=== PATIENT | male | born 1955 | race Native Hawaiian/Other Pacific Islander ===

== ENCOUNTER 2018-04-25 14:28 | Inpatient (IN) | payer OTHER ==
[2018-04-25 14:59] VITALS: BMI 24.7
--- NOTE | 2018-04-25 15:19 | C.PDOC ---
History Of Present Illness 63 y/o male presents to the ED for worsening MANDEL over the past month. States that he routinely walks long distances without difficulty. Reports being progressively less able to walk, and is now unable to walk 1 block to the bus without feeling winded. He states this improves with rest, but occasionally he will have dyspnea at rest. When lying flat, patient feels as if he is choking, and this improves when he sits up. Otherwise he denies any fever, chills, cough, or chest pain. Patient also complains of new-onset bilateral leg swelling, worsening for 1 month. No trauma or fall associated. No prior hx of lung disease or smoking. + Recent weight loss of 20lbs in 2 months. Time Seen by Provider: 04/25/18 14:41 Chief Complaint (Nursing): Lower Extremity Problem/Injury History Per: Patient History/Exam Limitations: no limitations Onset/Duration Of Symptoms: Days Current Symptoms Are (Timing): Worse Exacerbating Factor(s): Exertion, Laying Flat Associated Symptoms: Ankle/Leg Swelling. denies: Fever, Chills, Chest Pain Past Medical History Reviewed: Historical Data, Nursing Documentation, Vital Signs Vital Signs: Last Vital Signs Temp 97 F L 04/25/18 14:53 Pulse 98 H 04/25/18 14:53 Resp 22 04/25/18 14:53 BP 169/85 H 04/25/18 14:53 Pulse Ox 98 04/25/18 14:53 - Medical History PMH: HTN Other Surgeries: Lipoma removal Family History: States: No Known Family Hx - Social History Hx Tobacco Use: No Hx Alcohol Use: No Hx Substance Use: No - Immunization History Hx Tetanus Toxoid Vaccination: No Hx Influenza Vaccination: Yes Hx Pneumococcal Vaccination: No Review Of Systems Constitutional: Negative for: Fever, Chills Eyes: Negative for: Vision Change Cardiovascular: Negative for: Chest Pain, Palpitations Respiratory: Positive for: Shortness of Breath, SOB with Excertion. Negative for: Cough, Sputum Gastrointestinal: Negative for: Nausea, Vomiting, Diarrhea Musculoskeletal: Positive for: Other (Lower leg swelling) Skin: Negative for: Rash Neurological: Negative for: Weakness, Numbness, Dizziness Physical Exam - Physical Exam Appears: Non-toxic, No Acute Distress Skin: Normal Color, Warm, No Rash Head: Atraumatic, Normacephalic Eye(s): bilateral: Normal Inspection, PERRL, EOMI Oral Mucosa: Moist Neck: Normal ROM Chest: Symmetrical, No Tenderness Cardiovascular: Rhythm Regular, No Murmur Respiratory: Normal Breath Sounds, No Rales, No Rhonchi, No Wheezing, Other (NARD) Gastrointestinal/Abdominal: Soft, No Tenderness, No Distention Back: Normal Inspection Extremity: Normal ROM, Capillary Refill (< 2 sec), No Deformity, Swelling (Bilateral lower extremity swelling, non-pitting) Pulses: Left Dorsalis Pedis: Normal, Right Dorsalis Pedis: Normal Neurological/Psych: Oriented x3, Normal Speech, Normal Cranial Nerves ED Course And Treatment - Laboratory Results Result Diagrams: 04/25/18 15:19 04/25/18 15:19 ECG: Interpreted By Me, Viewed By Me ECG Rhythm: Sinus Rhythm Interpretation Of ECG: NSR at 80 bpm, nonspecific T wave abnormality O2 Sat by Pulse Oximetry: 98 (RA) Pulse Ox Interpretation: Normal - Radiology CXR: Interpreted by Me CXR Interpretation: Yes: No Acute Disease - CT Scan/US CT Chest [PE protocol] Other Rad Studies (CT/US): Read By Radiologist, Radiology Report Reviewed CT/US Interpretation: Accession No. : [id number]. Patient Name / ID : NELI ACOSTA / [id number]. Exam Date : 04/25/2018 16:20:06 ( Approved ). Study Comment : Sex / Age : M / [id number]. Creator : Sandra Barboza. Dictator : Kingston Tomas MD. Milk House Worker : Signals Intelligence Analyst : Kingston Tomas MD. Approver2 : Report Date : 04/25/2018 16:32:49. My Comment : . Date of service: 04/25/2018. PROCEDURE: CT Chest with contrast (Pulmonary Angiogram). HISTORY: SOB r/o PE. COMPARISON: Not available. TECHNIQUE: Axial computed tomography images were obtained of the chest in the pulmonary arterial phase of enhancement. Coronal and sagittal reformatted images were created and reviewed. Intravenous contrast dose: 100 mL Visipaque 320. Radiation dose: Total exam DLP = 567.66 mGy-cm. This CT exam was performed using one or more of the following dose reduction techniques: Automated exposure control, adjustment of the mA and/or kV according to patient size, and/or use of iterative reconstruction technique. FINDINGS: PULMONARY ARTERIES: Unremarkable. No pulmonary embolism. AORTA: No acute findings. No thoracic aortic aneurysm. No aortic atherosclerotic calcification or mural plaque present. LUNGS: Unremarkable. No nodule, mass or pulmonary consolidation. PLEURAL SPACES: Unremarkable. No effusion or pneumothorax. HEART: Unremarkable. No cardiomegaly. No significant pericardial effusion. LYMPH NODES: No lymphadenopathy. BONES, CHEST WALL: Unremarkable. No fracture or destructive lesion. OTHER FINDINGS: Large calcified gallstone within gallbladder lumen. No mural thickening. Multiple rounded low-attenuation lesions throughout the liver common nonspecific. Largest 3.8 cm. Consider correlation with hepatic ultrasound examination. IMPRESSION: No evidence of pulmonary embolism. No pulmonary infiltrate/pleural effusion. Multiple rounded low-attenuation nonspecific lesions within the liver. Consider correlation with ultrasound examination. Doppler US - B/L LE Other Rad Studies (CT/US): Read By Radiologist, Radiology Report Reviewed CT/US Interpretation: + abnormality in the: Left deep perneal vein. Right short saphenous vein Progress - Re-Evaluation Re-evaluation Note: 04/25/18 15:19 D/W DR WREN AWARE OF ER FINDINGS. CTA PENDING, WILL ADMIT - Data Reviewed Data Reviewed: Lab, Diagnostic imaging, EKG, Old records Medical Decision Making Medical Decision Making: Impression: MANDEL, B/L lower leg swelling Plan: -CMP, CBC, pro-BNP -VBG -EKG -Chest x-ray -Doppler US, B/L LE Vascular study shows + B/L DVT. CTA ordered to rule out PE. Disposition Counseled Patient/Family Regarding: Studies Performed, Diagnosis - Disposition Disposition: HOSPITALIZED Disposition Time: 16:16 Condition: SERIOUS - POA Present On Arrival: Deep Vein Thrombosis / PE - Clinical Impression Clinical Impression: Deep venous thrombosis of lower extremity, Lymphocytosis, Dyspnea - Scribe Statement The provider has reviewed the documentation as recorded by the Amparo Escobar Provider Attestation: All medical record entries made by the Scribe were at my direction and personal ly dictated by me. I have reviewed the chart and agree that the record accurately reflects my personal performance of the history, physical exam, medical decision making, and the department course for this patient. I have also personally directed, reviewed, and agree with the discharge instructions and disposition.
[2018-04-25 15:34] LABS: EOS # 0.7 K/uL (0.0-0.7); EOS % 0.4 % (0.0-4.0); HEMOGLOBIN 13.1 g/dL (12.0-18.0); LYMPH # 0.7 K/uL (1.0-4.3); LYMPH % 0.4 % (20.0-40.0); MEAN CELL VOLUME 87.8 fL (80.0-94.0); MEAN CORPUSCULAR HEMOGLOBIN 28.6 pg (27.0-31.0); MEAN CORPUSCULAR HGB CONC 32.6 g/dL (33.0-37.0); MEAN PLATELET VOLUME 7.3 fL (7.2-11.7); MONO # 148.9 K/uL (0.0-0.8); MONO % 88.1 % (0.0-10.0); NEUT # 18.7 K/uL (1.8-7.0); NEUT % 11.1 % (50.0-75.0); NRBC % 0.1 % (0.0-2.0); PLATELET COUNT 173 K/uL (130-400); RBC 4.58 Mil/uL (4.40-5.90); RED CELL DISTRIBUTION WIDTH 18.1 % (11.5-14.5)
[2018-04-25 15:38] LABS: VENOUS BLOOD GAS BASE EXCESS -1.7 mmol/L (0.0-2.0); VENOUS BLOOD GAS PCO2 59 mmHg (40-60); VENOUS BLOOD GAS PO2 13 mm/Hg (30-55); VENOUS BLOOD PH 7.26 (7.32-7.43)
[2018-04-25 15:39] LABS: BLOOD UREA NITROGEN 21 mg/dL (9-20); CALCIUM 9.3 mg/dl (8.6-10.4); GFR NON-AFRICAN AMERICAN 56
[2018-04-25 15:44] LABS: ALB/GLOB RATIO 1.4 (1.0-2.1); ALBUMIN 4.8 g/dL (3.5-5.0); ALT/SGPT 31 U/L (21-72); AST/SGOT 54 U/L (17-59)
[2018-04-25 15:48] LABS: B-TYPE NATRIURETIC PEPTIDE 145 pg/mL (0-900)
[2018-04-25] MEDS ORDERED: Enoxaparin 40 mg Syringe SC STA (16:15)
[2018-04-25] MEDS ORDERED: Iodixanol 320 MG/ML 100 ML BOTTLE IV ONE (16:19)
--- NOTE | 2018-04-25 16:23 | RAD ---
Date of service: 04/25/2018 HISTORY: SOB COMPARISON: No prior. TECHNIQUE: Chest PA and lateral FINDINGS: LUNGS: No active pulmonary disease. PLEURA: No significant pleural effusion identified. No pneumothorax apparent. CARDIOVASCULAR: No aortic atherosclerotic calcification present. Normal cardiac size. No pulmonary vascular congestion. OSSEOUS STRUCTURES: No significant abnormalities. VISUALIZED UPPER ABDOMEN: Normal. OTHER FINDINGS: None. IMPRESSION: No active disease.
[2018-04-25] MEDS ORDERED: Enoxaparin 40 mg Syringe ONE ×2 (16:43→16:49)
[2018-04-25] MEDS ORDERED: Enoxaparin 100 mg Syringe ONE (16:43)
--- NOTE | 2018-04-25 16:43 | CT ---
Date of service: 04/25/2018 PROCEDURE: CT Chest with contrast (Pulmonary Angiogram) HISTORY: SOB r/o PE COMPARISON: Not available TECHNIQUE: Axial computed tomography images were obtained of the chest in the pulmonary arterial phase of enhancement. Coronal and sagittal reformatted images were created and reviewed. Intravenous contrast dose: 100 mL Visipaque 320 Radiation dose: Total exam DLP = 567.66 mGy-cm. This CT exam was performed using one or more of the following dose reduction techniques: Automated exposure control, adjustment of the mA and/or kV according to patient size, and/or use of iterative reconstruction technique. FINDINGS: PULMONARY ARTERIES: Unremarkable. No pulmonary embolism. AORTA: No acute findings. No thoracic aortic aneurysm. No aortic atherosclerotic calcification or mural plaque present. LUNGS: Unremarkable. No nodule, mass or pulmonary consolidation. PLEURAL SPACES: Unremarkable. No effusion or pneumothorax. HEART: Unremarkable. No cardiomegaly. No significant pericardial effusion. LYMPH NODES: No lymphadenopathy. BONES, CHEST WALL: Unremarkable. No fracture or destructive lesion OTHER FINDINGS: Large calcified gallstone within gallbladder lumen. No mural thickening. Multiple rounded low-attenuation lesions throughout the liver common nonspecific. Largest 3.8 cm. Consider correlation with hepatic ultrasound examination. IMPRESSION: No evidence of pulmonary embolism. No pulmonary infiltrate/pleural effusion. Multiple rounded low-attenuation nonspecific lesions within the liver. Consider correlation with ultrasound examination.
[2018-04-25 17:09] LABS: ANISOCYTOSIS SLIGHT; BANDS 6 % (0-2); BLASTS 25 % (0-0); EOSINOPHIL 1 % (0-4); LYMPHOCYTE 30 % (20-40); MONOCYTE 3 % (0-10); NEUTROPHIL 11 % (50-75); PLATELET ESTIMATE NORMAL (NORMAL); REACTIVE LYMPHOCYTES 24 % (0-0); SMUDGE CELLS PRESENT; TOTAL CELLS COUNTED 100
--- NOTE | 2018-04-25 19:47 | CP.PCM.PN ---
Subjective - Date & Time of Evaluation Date of Evaluation: 04/25/18 Time of Evaluation: 03:00 - Subjective Subjective: 63 y.o. male with PMH Hypertensionadmitted due to persistent edema and swelling of the legs. and affecting ambulation, This wa snoted about 2-3 weeks ago when he noticed swelling of the left upper thigh, that disappear then swelling and edema of the left calf, then edema and swelling of the right leg. patient denies chest pain, abdominal pain, fever , DVT was negative. Patient came back due to persistent swelling and edema and pain of both legs, affecting ambulation, /gait - that he delays getting to bathroom due to pain. he reporst some what shortness of breath but still no chest pain no fever , no vomiting no urinary complaints. there is noted weight loss. In ER, Ct chest revealed negative for PE- but has mass on liver and very high WBC-160's. patient was admitted sugbsequently for further evaluation and management . PMH hypertension Cholelithiasis asymptomatic Objective - Vital Signs/Intake and Output Vital Signs (last 24 hours): Temp Pulse Resp BP Pulse Ox 98.8 F 76 14 142/72 100 04/25/18 18:23 04/25/18 18:23 04/25/18 18:23 04/25/18 18:23 04/25/18 18:23 - Labs Labs: 04/25/18 15:19 04/25/18 15:19 - Constitutional Appears: Non-toxic, No Acute Distress (reports leg pain affecting ambulation) - Head Exam Head Exam: ATRAUMATIC, NORMOCEPHALIC - Eye Exam Eye Exam: Normal appearance. absent: Nystagmus - ENT Exam ENT Exam: Mucous Membranes Moist - Neck Exam Neck Exam: Full ROM. absent: Tenderness - Respiratory Exam Respiratory Exam: Clear to Ausculation Bilateral, NORMAL BREATHING PATTERN - Cardiovascular Exam Cardiovascular Exam: REGULAR RHYTHM - GI/Abdominal Exam GI & Abdominal Exam: Soft, Normal Bowel Sounds. absent: Tenderness - Extremities Exam Extremities Exam: Full ROM ( with swelling and edema both legs, with tenderness ) - Back Exam Back Exam: Full ROM. absent: rash noted - Neurological Exam Neurological Exam: Alert, Awake, Oriented x3 (gait- became slow ,due to leg pain ) - Psychiatric Exam Psychiatric exam: Normal Affect, Normal Mood - Skin Skin Exam: Intact, Normal Color Assessment and Plan - Assessment and Plan (Free Text) Assessment: Patient with Hypertension admitted for DVT- Lovenox, affecting ambulation, weakness Chest CT negative for PE Leukocytosis weakness- need further evaluation- heme consult, Liver mass on Chest CT - Ct abdomen further evaluation will discuss with patient
[2018-04-25 20:00] VITALS: RESP 20
[2018-04-25 21:46] LABS: MEAN CORPUSCULAR HEMOGLOBIN 27.9 pg (27.0-31.0); MEAN CORPUSCULAR HGB CONC 32.5 g/dL (33.0-37.0); MEAN PLATELET VOLUME 7.5 fL (7.2-11.7); RBC 4.3 Mil/uL (4.40-5.90); RED CELL DISTRIBUTION WIDTH 17.7 % (11.5-14.5)
[2018-04-25 21:49] LABS: MEAN CELL VOLUME 85.7 fL (80.0-94.0); WHITE BLOOD COUNT 138.3 K/uL (4.8-10.8)
[2018-04-25 22:02] LABS: ALB/GLOB RATIO 1.4 (1.0-2.1); ALBUMIN 4.1 g/dL (3.5-5.0); CALCIUM 9.2 mg/dl (8.6-10.4)
[2018-04-26 07:14] LABS: BASO # 1.3 K/uL (0.0-0.2); EOS # 0.9 K/uL (0.0-0.7); EOS % 0.7 % (0.0-4.0); HEMOGLOBIN 12.3 g/dL (12.0-18.0); LYMPH # 121.8 K/uL (1.0-4.3); LYMPH % 92.1 % (20.0-40.0); MEAN CORPUSCULAR HEMOGLOBIN 27.9 pg (27.0-31.0); MEAN CORPUSCULAR HGB CONC 32.1 g/dL (33.0-37.0); MEAN PLATELET VOLUME 7.7 fL (7.2-11.7); NEUT # 8.2 K/uL (1.8-7.0); NEUT % 6.2 % (50.0-75.0); NRBC % 0.4 % (0.0-2.0); PLATELET COUNT 161 K/uL (130-400); RBC 4.41 Mil/uL (4.40-5.90); RED CELL DISTRIBUTION WIDTH 18.2 % (11.5-14.5)
[2018-04-26 07:21] LABS: WHITE BLOOD COUNT 132.2 K/uL (4.8-10.8)
--- NOTE | 2018-04-26 07:56 | CP.PCM.PN ---
Subjective - Date & Time of Evaluation Date of Evaluation: 04/26/18 Time of Evaluation: 08:15 - Subjective Subjective: chart review patient had requested repeat CBC -still with lymphocytosis Vitals stable no unusual event overnight afebrile on lovenox patient seenlegs still hurting ,\ with sligh improvement of swelling- walking slightly better laboratory finging discussedOncologist on case repeated /further discussion no fever no cough no chemical exposure weight loss noted Objective - Vital Signs/Intake and Output Vital Signs (last 24 hours): Temp Pulse Resp BP Pulse Ox 98.2 F 76 20 135/68 96 04/26/18 07:44 04/26/18 07:44 04/26/18 07:44 04/26/18 07:44 04/26/18 07:44 - Medications Medications: Current Medications Enoxaparin Sodium (Lovenox) 120 mg SC Q24H [facility] Hydrochlorothiazide (Microzide) 12.5 mg PO DAILY [facility] Losartan Potassium (Cozaar) 100 mg PO DAILY [facility] Pantoprazole Sodium (Protonix Ec Tab) 40 mg PO DAILY [facility] - Labs Labs: 04/26/18 07:04 04/25/18 21:17 - Constitutional Appears: Non-toxic, No Acute Distress - Head Exam Head Exam: ATRAUMATIC, NORMOCEPHALIC - Eye Exam Eye Exam: Normal appearance - ENT Exam ENT Exam: Mucous Membranes Moist - Neck Exam Neck Exam: Full ROM. absent: Tenderness - Respiratory Exam Respiratory Exam: Clear to Ausculation Bilateral, NORMAL BREATHING PATTERN - Cardiovascular Exam Cardiovascular Exam: REGULAR RHYTHM - GI/Abdominal Exam GI & Abdominal Exam: Soft, Normal Bowel Sounds - Extremities Exam Extremities Exam: Full ROM (swelling some edema lower legs, ) Assessment and Plan - Assessment and Plan (Free Text) Assessment: Patient withhistory of Hypertension admitted for DVT on treatment Gait slightly improving Lymphocytosis- Oncology on case -further verification, treatment as per Oncology discussed with patient and Hypertension- stable continue CRI with slight low potassium- will supplement with food/bananas Liver mass- further evaluation GI prophylaxis
[2018-04-26] MEDS ORDERED: Sodium Chloride 0.9% 1,000 ML IV SCH ×2 (09:15→15:43)
[2018-04-26] MEDS ORDERED: Pantoprazole 40 mg EC Tab PO SCH (10:00)
[2018-04-26 10:36] LABS: BANDS 3 % (0-2); BLASTS 19 % (0-0); EOSINOPHIL 1 % (0-4); LYMPHOCYTE 36 % (20-40); MONOCYTE 3 % (0-10); NEUTROPHIL 12 % (50-75); PLATELET ESTIMATE NORMAL (NORMAL); REACTIVE LYMPHOCYTES 26 % (0-0); TOTAL CELLS COUNTED 100
[2018-04-26 10:37] LABS: ANISOCYTOSIS SLIGHT; LARGE PLATELETS PRESENT; SMUDGE CELLS PRESENT
--- NOTE | 2018-04-26 15:09 | CT ---
Date of service: 04/26/2018 PROCEDURE: CT Abdomen and Pelvis with contrast HISTORY: abnormal mass low gfr 44 COMPARISON: Chest CT with contrast 04/25/2018. TECHNIQUE: Helical CT of the abdomen was performed from the domes the diaphragm to the iliac crest without oral or intravenous contrast administered, as requested. Contrast dose: None Radiation dose: Total exam DLP = 447.33 mGy-cm. This CT exam was performed using one or more of the following dose reduction techniques: Automated exposure control, adjustment of the mA and/or kV according to patient size, and/or use of iterative reconstruction technique. FINDINGS: LOWER THORAX: Unremarkable. LIVER: There multiple scattered lucencies appreciated throughout the liver the majority of which are too small to characterize as they are under 1 cm size. A lucency at the dome measures 3.8 x 3.2 cm with a Hounsfield unit density of -3.1. Additional cyst is seen at the left lobe laterally measuring 2.3 x 2.2 cm and 2.5 Hounsfield units. These likely reflects cysts not significantly changed in appearance in the interval. Numerous additional lucencies are scattered throughout the left and right lobes liver and are well under 1 cm size. The largest foci can be adequately evaluated by ultrasonography of the liver, which could prove there is simple appearing nature. GALLBLADDER AND BILE DUCTS: A large calculus is identified within a contracted gallbladder. PANCREAS: Unremarkable. No gross lesion or ductal dilatation. SPLEEN: Unremarkable. ADRENALS: Unremarkable. No mass. KIDNEYS AND URETERS: Trace excreted iodinated contrast material is seen within renal parenchyma bilaterally with the kidneys otherwise unremarkable appearing. VASCULATURE: Unremarkable. No aortic aneurysm. No aortic atherosclerotic calcification or mural plaque present. BOWEL: Unremarkable. No obstruction. No gross mural thickening. PERITONEUM: Unremarkable. No free fluid. No free air. LYMPH NODES: Unremarkable. No enlarged lymph nodes. BONES: No acute fracture. OTHER FINDINGS: None. IMPRESSION: Multiple lucencies are scattered throughout the liver with the 2 largest suggestive of cysts. Ultrasonography can prove there is simple nature. Cholelithiasis reiterated.
--- NOTE | 2018-04-26 15:36 | US ---
Date of service: 04/26/2018 HISTORY: lesions COMPARISON: CT of the abdomen performed TECHNIQUE: Sonographic evaluation of the right upper quadrant of the abdomen. FINDINGS: LIVER: Measures 13.1 cm in length. Echogenic liver may be seen in setting of hepatic parenchymal disease or fatty infiltration. Multiple avascular anechoic hepatic masses consistent with cysts. Largest cyst measures approximately 2.7 x 1.6 x 2.2 cm. The main portal vein appears patent with normal directional flow. No intrahepatic bile duct dilatation. GALLBLADDER: Cholelithiasis. Gallbladder wall thickening measuring approximately 5 mm. Negative sonographic Robin's sign as assessed by the residential therapist. COMMON BILE DUCT: Measures 4 mm. PANCREAS: Not well-visualized. RIGHT KIDNEY: Measures approximately 11.0 x 6.5 x 6.1 cm. No hydronephrosis or obstructing calculus identified. AORTA: Limited visualization appears grossly unremarkable. IVC: Not well-visualized. OTHER FINDINGS: None . IMPRESSION: Multiple hepatic cysts. Largest cyst measures approximately 2.7 x 1.6 x 2.2 cm. Echogenic liver may be seen in setting of hepatic parenchymal disease or fatty infiltration. Cholelithiasis. Gallbladder wall thickening measuring approximately 5 mm. Negative sonographic Robin's sign as assessed by the residential therapist. Correlate clinically
[2018-04-26 16:01] VITALS: BP 126/77; PULSE 95; TEMP 97.8; O2SAT 98
--- NOTE | 2018-04-26 16:49 | CP.PCM.CON ---
History of Present Illness - History of Present Illness History of Present Illness: 63 yo man with history of HTN, admitted with weakness, fatigue, MANDEL, pain in the lower extremities for several months, along with weight loss. The patient denies fever, chills, night sweats. Heme consult called for elevated WBC count, with abnormal 'blast' like cells on the peripheral smear. He was in his usual state of health, getting lab work every 4 months, started feeling weakness and fatigue, unable to walk his usual 2 miles for the past few months. The patient had a repeat Doppler of the lower extremities(done in an outside facility 2 weeks ago, reportedly negative) which was positive for DVT. The patient is seen sitting up in bed, comfortable in nodistress. Denies pain, SOB, CP ,palpitations. Past Patient History - Past Medical History & Family History Past Medical History?: Yes - Past Social History Smoking Status: Never Smoked - CARDIAC Hx Hypertension: Yes - MUSCULOSKELETAL/RHEUMATOLOGICAL Hx Falls: No - PSYCHIATRIC Hx Substance Use: No - SURGICAL HISTORY Hx Surgeries: Yes Other/Comment: lipoma removed Meds Allergies/Adverse Reactions: Allergies Allergy/AdvReac Type Severity Reaction Status Date / Time No Known Allergies Allergy Verified 04/25/18 14:50 - Medications Medications: Current Medications Allopurinol (Zyloprim) 100 mg PO DAILY [facility] Last Admin: 04/26/18 16:13 Dose: 100 mg Enoxaparin Sodium (Lovenox) 120 mg SC Q24H [facility] Hydrochlorothiazide (Microzide) 12.5 mg PO DAILY [facility] Last Admin: 04/26/18 13:51 Dose: 12.5 mg Hydroxyurea (Hydrea) 1,000 mg PO BID [facility] Sodium Chloride (Sodium Chloride 0.9%) 1,000 mls @ 100 mls/hr IV .Q10H [facility] Losartan Potassium (Cozaar) 100 mg PO DAILY [facility] Last Admin: 04/26/18 13:51 Dose: 100 mg Pantoprazole Sodium (Protonix Ec Tab) 40 mg PO DAILY [facility] Last Admin: 04/26/18 13:55 Dose: 40 mg Results - Vital Signs Recent Vital Signs: Last Vital Signs Temp 97.8 F 04/26/18 15:00 Pulse 95 H 04/26/18 15:00 Resp 20 04/26/18 15:00 BP 126/77 04/26/18 15:00 Pulse Ox 98 04/26/18 15:00 - Labs Result Diagrams: 04/26/18 07:04 04/25/18 21:17 Labs: Laboratory Results - last 24 hr 04/25/18 04/25/18 04/25/18 15:19 21:17 21:17 WBC RBC Hgb Hct MCV MCH MCHC RDW Plt Count MPV Neut % (Auto) Lymph % (Auto) Patrick % (Auto) Eos % (Auto) Baso % (Auto) Neut # (Auto) Lymph # (Auto) Patrick # (Auto) Eos # (Auto) Baso # (Auto) Neutrophils % (Manual) 11 L Band Neutrophils % 6 H Lymphocytes % (Manual) 30 Reactive Lymphs % 24 H Monocytes % (Manual) 3 Eosinophils % (Manual) 1 Blast Cells % 25 H Smudge Cells Present Platelet Estimate Normal Large Platelets Anisocytosis (manual) Slight Smear Path Review ESR 17 H Sodium Potassium Chloride Carbon Dioxide Anion Gap BUN Creatinine Est GFR ( Amer) Est GFR (Non-Af Amer) Random Glucose Uric Acid Calcium Total Bilirubin AST ALT Alkaline Phosphatase Lactate Dehydrogenase 2747 H Total Protein Albumin Globulin Albumin/Globulin Ratio 04/25/18 04/25/18 04/26/18 21:17 21:17 07:04 WBC 138.3 H* 132.2 H* RBC 4.30 L 4.41 Hgb 12.0 12.3 Hct 36.8 38.3 MCV 85.7 D 87.0 MCH 27.9 27.9 MCHC 32.5 L 32.1 L RDW 17.7 H 18.2 H Plt Count 163 161 MPV 7.5 7.7 Neut % (Auto) 6.2 L Lymph % (Auto) 92.1 H Patrick % (Auto) 0.0 Eos % (Auto) 0.7 Baso % (Auto) 1.0 Neut # (Auto) 8.2 H Lymph # (Auto) 121.8 H Patrick # (Auto) 0.0 Eos # (Auto) 0.9 H Baso # (Auto) 1.3 H Neutrophils % (Manual) 12 L Band Neutrophils % 3 H Lymphocytes % (Manual) 36 Reactive Lymphs % 26 H Monocytes % (Manual) 3 Eosinophils % (Manual) 1 Blast Cells % 19 H Smudge Cells Present Platelet Estimate Normal Large Platelets Present Anisocytosis (manual) Slight Smear Path Review ESR Sodium 133 Potassium 3.2 L Chloride 97 L Carbon Dioxide 28 Anion Gap 12 BUN 19 Creatinine 1.6 H Est GFR ( Amer) 53 Est GFR (Non-Af Amer) 44 Random Glucose 137 H D Uric Acid Calcium 9.2 Total Bilirubin 0.5 AST 39 ALT 28 Alkaline Phosphatase 84 Lactate Dehydrogenase Total Protein 7.1 Albumin 4.1 Globulin 2.9 Albumin/Globulin Ratio 1.4 04/26/18 07:04 WBC RBC Hgb Hct MCV MCH MCHC RDW Plt Count MPV Neut % (Auto) Lymph % (Auto) Patrick % (Auto) Eos % (Auto) Baso % (Auto) Neut # (Auto) Lymph # (Auto) Patrick # (Auto) Eos # (Auto) Baso # (Auto) Neutrophils % (Manual) Band Neutrophils % Lymphocytes % (Manual) Reactive Lymphs % Monocytes % (Manual) Eosinophils % (Manual) Blast Cells % Smudge Cells Platelet Estimate Large Platelets Anisocytosis (manual) Smear Path Review ESR Sodium Potassium Chloride Carbon Dioxide Anion Gap BUN Creatinine Est GFR ( Amer) Est GFR (Non-Af Amer) Random Glucose Uric Acid 12.4 H Calcium Total Bilirubin AST ALT Alkaline Phosphatase Lactate Dehydrogenase Total Protein Albumin Globulin Albumin/Globulin Ratio Assessment & Plan (1) Elevated WBC count Assessment and Plan: 63 yo man admitted with c/o fatigue, dyspnea on exertion, found to have an elevated WBC count, review of peripheral smear showing abnormal blast like cells, increased monocytes, normal RBC morphology. 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 Have discussed above with the patient and family, the plan is to transfer the patient to [place] for further testing and treatment. Case discussed with PMD and office technologist. Also briefly discussed with leukemia service at [place], who recommended starting Hydrea as well. The patient will be transferred once a bed is available Status: Acute (2) Deep venous thrombosis of lower extremity Status: Acute (3) Lymphocytosis Status: Acute
[2018-04-26] MEDS ORDERED: Enoxaparin 120 mg Syringe SC SCH (17:00)
[2018-04-26 19:41] LABS: CALCIUM 9.1 mg/dl (8.6-10.4)
--- NOTE | 2018-04-26 22:09 | CP.PCM.DIS ---
Provider - Provider Date of Admission: 04/25/18 17:05 Attending physician: Annika Mills MD Consults: 04/25/18 19:34 Physician Consult Routine Comment: Consulting Provider: Dionne Lundy Consulting Physician: Dionne Lundy Reason for Consult: leukocytosis 04/25/18 19:51 Hematology Oncology Consult Routine Comment: Consulting Provider: Dionne Lundy Consulting Physician: Dionne Lundy Reason for Consult: elevated WBC 04/26/18 15:25 Nephrology Consult Routine Comment: Consulting Provider: Gabe Castillo Consulting Physician: Gabe Castillo Reason for Consult: Tumor lysis syndrome, increased creatinine Time Spent in preparation of Discharge (in minutes): 30 Hospital Course - Lab Results Lab Results: Most Recent Lab Values WBC 132.2 K/uL (4.8-10.8) H* 04/26/18 07:04 RBC 4.41 Mil/uL (4.40-5.90) 04/26/18 07:04 Hgb 12.3 g/dL (12.0-18.0) 04/26/18 07:04 Hct 38.3 % (35.0-51.0) 04/26/18 07:04 MCV 87.0 fL (80.0-94.0) 04/26/18 07:04 MCH 27.9 pg (27.0-31.0) 04/26/18 07:04 MCHC 32.1 g/dL (33.0-37.0) L 04/26/18 07:04 RDW 18.2 % (11.5-14.5) H 04/26/18 07:04 Plt Count 161 K/uL (130-400) 04/26/18 07:04 MPV 7.7 fL (7.2-11.7) 04/26/18 07:04 Neut % (Auto) 6.2 % (50.0-75.0) L 04/26/18 07:04 Lymph % (Auto) 92.1 % (20.0-40.0) H 04/26/18 07:04 [place] % (Auto) 0.0 % (0.0-10.0) 04/26/18 07:04 Eos % (Auto) 0.7 % (0.0-4.0) 04/26/18 07:04 Baso % (Auto) 1.0 % (0.0-2.0) 04/26/18 07:04 Neut # (Auto) 8.2 K/uL (1.8-7.0) H 04/26/18 07:04 Lymph # (Auto) 121.8 K/uL (1.0-4.3) H 04/26/18 07:04 [place] # (Auto) 0.0 K/uL (0.0-0.8) 04/26/18 07:04 Eos # (Auto) 0.9 K/uL (0.0-0.7) H 04/26/18 07:04 Baso # (Auto) 1.3 K/uL (0.0-0.2) H 04/26/18 07:04 Neutrophils % (Manual) 12 % (50-75) L 04/26/18 07:04 Band Neutrophils % 3 % (0-2) H 04/26/18 07:04 Lymphocytes % (Manual) 36 % (20-40) 04/26/18 07:04 Reactive Lymphs % 26 % (0-0) H 04/26/18 07:04 Monocytes % (Manual) 3 % (0-10) 04/26/18 07:04 Eosinophils % (Manual) 1 % (0-4) 04/26/18 07:04 Blast Cells % 19 % (0-0) H 04/26/18 07:04 Smudge Cells Present 04/26/18 07:04 Platelet Estimate Normal (NORMAL) 04/26/18 07:04 Large Platelets Present 04/26/18 07:04 Anisocytosis (manual) Slight 04/26/18 07:04 Smear Path Review 04/25/18 15:19 ESR 17 mm/hr (0-15) H 04/25/18 21:17 pO2 13 mm/Hg (30-55) L 04/25/18 15:31 VBG pH 7.26 (7.32-7.43) L 04/25/18 15:31 VBG pCO2 59 mmHg (40-60) 04/25/18 15:31 VBG HCO3 21.3 mmol/L 04/25/18 15:31 VBG Total CO2 28.3 mmol/L (22-28) H 04/25/18 15:31 VBG O2 Sat (Calc) 10.1 % (40-65) L 04/25/18 15:31 VBG Base Excess -1.7 mmol/L (0.0-2.0) L 04/25/18 15:31 VBG Potassium 2.8 mmol/L (3.6-5.2) L 04/25/18 15:31 Sodium 137.0 mmol/l (132-148) 04/25/18 15:31 Chloride 97.0 mmol/L (98-107) L 04/25/18 15:31 Glucose 88 mg/dl (75-110) 04/25/18 15:31 Lactate 2.7 mmol/L (0.7-2.1) H 04/25/18 15:31 Sodium 133 mmol/L (132-148) 04/25/18 21:17 Potassium 3.2 mmol/L (3.6-5.2) L 04/25/18 21:17 Chloride 97 mmol/L (98-107) L 04/25/18 21:17 Carbon Dioxide 28 mmol/L (22-30) 04/25/18 21:17 Anion Gap 12 (10-20) 04/25/18 21:17 BUN 19 mg/dL (9-20) 04/25/18 21:17 Creatinine 1.6 mg/dL (0.8-1.5) H 04/25/18 21:17 Est GFR ( Amer) 53 04/25/18 21:17 Est GFR (Non-Af Amer) 44 04/25/18 21:17 Random Glucose 137 mg/dL (75-110) H D 04/25/18 21:17 Uric Acid 12.4 mg/dL (3.5-8.5) H 04/26/18 07:04 Calcium 9.1 mg/dl (8.6-10.4) 04/26/18 19:05 Phosphorus 3.3 mg/dL (2.5-4.5) 04/26/18 19:05 Total Bilirubin 0.5 mg/dL (0.2-1.3) 04/25/18 21:17 AST 39 U/L (17-59) 04/25/18 21:17 ALT 28 U/L (21-72) 04/25/18 21:17 Alkaline Phosphatase 84 U/L (38-126) 04/25/18 21:17 Lactate Dehydrogenase 2747 U/L (313-618) H 04/25/18 21:17 NT-Pro-B Natriuret Pep 145 pg/mL (0-900) 04/25/18 15:19 Total Protein 7.1 g/dL (6.3-8.3) 04/25/18 21:17 Albumin 4.1 g/dL (3.5-5.0) 04/25/18 21:17 Globulin 2.9 gm/dL (2.2-3.9) 04/25/18 21:17 Albumin/Globulin Ratio 1.4 (1.0-2.1) 04/25/18 21:17 Venous Blood Potassium 2.8 mmol/L (3.6-5.2) L 04/25/18 15:31 - Hospital Course Hospital Course: admitted due to difficulty walking, leg swelling and pain, found to have DVt placed on Lovenox, found to be have acute lymphocytosis , oncology was called , patient has no fever but has abnormal weight loss, Ct abdomen showedliver cysts and cholelithisais 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 - Date & Time of H&P Date of H&P: 04/26/18 Time of H&P: 22:14 Discharge Exam - Head Exam Head Exam: ATRAUMATIC, NORMOCEPHALIC Discharge Plan - Follow Up Plan Condition: SERIOUS Disposition: Transfer [facility]
--- NOTE | 2018-04-26 23:02 | CP.PCM.CON ---
History of Present Illness - History of Present Illness History of Present Illness: pt is seen and examined, full consult is dictated #[id number] 1.abmer 2.acute lukemia, r/o ALL,AML Past Patient History - Past Medical History & Family History Past Medical History?: Yes - Past Social History Smoking Status: Never Smoked - CARDIAC Hx Hypertension: Yes - MUSCULOSKELETAL/RHEUMATOLOGICAL Hx Falls: No - PSYCHIATRIC Hx Substance Use: No - SURGICAL HISTORY Hx Surgeries: Yes Other/Comment: lipoma removed Meds Allergies/Adverse Reactions: Allergies Allergy/AdvReac Type Severity Reaction Status Date / Time No Known Allergies Allergy Verified 04/25/18 14:50 Results - Vital Signs Recent Vital Signs: Last Vital Signs Temp 97.8 F 04/26/18 15:00 Pulse 95 H 04/26/18 15:00 Resp 20 04/26/18 15:00 BP 126/77 04/26/18 15:00 Pulse Ox 98 04/26/18 15:00 - Labs Result Diagrams: 04/26/18 07:04 04/25/18 21:17 Labs: Laboratory Results - last 24 hr 04/25/18 04/26/18 04/26/18 15:19 07:04 07:04 WBC 132.2 H* RBC 4.41 Hgb 12.3 Hct 38.3 MCV 87.0 MCH 27.9 MCHC 32.1 L RDW 18.2 H Plt Count 161 MPV 7.7 Neut % (Auto) 6.2 L Lymph % (Auto) 92.1 H [place] % (Auto) 0.0 Eos % (Auto) 0.7 Baso % (Auto) 1.0 Neut # (Auto) 8.2 H Lymph # (Auto) 121.8 H [place] # (Auto) 0.0 Eos # (Auto) 0.9 H Baso # (Auto) 1.3 H Neutrophils % (Manual) 12 L Band Neutrophils % 3 H Lymphocytes % (Manual) 36 Reactive Lymphs % 26 H Monocytes % (Manual) 3 Eosinophils % (Manual) 1 Blast Cells % 19 H Smudge Cells Present Platelet Estimate Normal Large Platelets Present Anisocytosis (manual) Slight Smear Path Review Uric Acid 12.4 H Calcium Phosphorus 04/26/18 19:05 WBC RBC Hgb Hct MCV MCH MCHC RDW Plt Count MPV Neut % (Auto) Lymph % (Auto) [place] % (Auto) Eos % (Auto) Baso % (Auto) Neut # (Auto) Lymph # (Auto) [place] # (Auto) Eos # (Auto) Baso # (Auto) Neutrophils % (Manual) Band Neutrophils % Lymphocytes % (Manual) Reactive Lymphs % Monocytes % (Manual) Eosinophils % (Manual) Blast Cells % Smudge Cells Platelet Estimate Large Platelets Anisocytosis (manual) Smear Path Review Uric Acid Calcium 9.1 Phosphorus 3.3
--- NOTE | 2018-04-27 03:01 | CON ---
DATE: 04/26/2018 RENAL CONSULTATION LOCATION: The patient is located in room 351, bed A. REQUESTED BY: Annika Mills MD REASON FOR RENAL CONSULTATION: Acute renal failure, for further evaluation. HISTORY OF PRESENT ILLNESS: Mr. Guillen is a 63-year-old very pleasant [place] man with a past medical history significant for hypertension for long time and removal of multiple abdominal lipomas in the past who was sent from the PMD office for abnormal labs and also with a chief complaint of worsening dyspnea on exertion for the last few months and also bilateral leg swelling and pain in both lower extremities for the last few weeks. The patient also complains feeling exhausted and weakness for the last few months. Denies any chest pain. Denies any headache or dizziness. Denies any nausea, vomiting, or diarrhea. Denies any abdominal pain. Denies any dysuria or frequency. PAST MEDICAL HISTORY: Significant for hypertension for many years. PAST SURGICAL HISTORY: Multiple lipomas removal on the abdominal wall, status post cardiac cath in about three years ago. ALLERGIES: NO KNOWN DRUG ALLERGIES. SOCIAL HISTORY: Denies any smoking. Social alcohol use. No drug abuse. PERSONAL HISTORY: He is and he has four children. FAMILY HISTORY: Not significant. CURRENT MEDICATIONS: Include Lovenox 120 mg subcu every 24 hours, hydrochlorothiazide 12.5 mg p.o. daily, losartan 100 mg p.o. daily, Protonix 40 mg p.o. daily, and allopurinol 100 mg daily. REVIEW OF SYSTEMS: Significant dyspnea on exertion, bilateral lower extremity swelling and pain, feeling weak and exhausted, dyspnea on exertion and shortness of breath. All other review of systems are reviewed and are negative. PHYSICAL EXAMINATION: VITAL SIGNS: As follows: Blood pressure this afternoon 126/77, pulse 95, respiration 20, temperature 97.8, saturation 98%. Height 5 feet 10 inches. Weight is 172 pounds. GENERAL: Mr. Guillen is a 63-year-old elderly [place] male, moderately built, moderately nourished, not in acute distress. HEENT: Pupils are normal and reactive to light and accommodation. Conjunctivae pink. Sclerae anicteric. Tongue is moist. Trachea is midline. LUNGS: Symmetric on both sides. Bilateral breath sounds present. Clear to auscultation. CARDIOVASCULAR SYSTEM: [place] at the fifth intercostal space, half inch middle to midclavicular line. S1 and S2 audible. No murmur. No gallop. ABDOMEN: Multiple scars on the abdomen from the previous lipoma removal. Abdomen is soft, tympanitic. No guarding. No rigidity. No hepatosplenomegaly. CENTRAL NERVOUS SYSTEM: The patient is alert, awake and oriented x3. Nonfocal neuro examination. Cranial nerves II through XII grossly intact. Sensory and motor system is within normal limits. EXTREMITIES: No cyanosis, no clubbing. The patient has swelling of both lower extremities, slightly pitting. LABORATORY DATA: Include as follows as of 04/25/2018: WBC 169,000, hemoglobin 13.1, hematocrit 40.2, and platelets 173. Neutrophils 11, bands 6, lymphocytes 30, reactive lymphocytes 24, monocytes 3, eosinophils 1, and 25% blast cells 25%. VBG: The pH of 7.26, pO2 of 13, pCO2 of 59, bicarb is 28, and saturation . Lactic acid is 2.7. Sodium 136, potassium is 4, chloride 96, CO2 of 29, BUN 21, creatinine 1.3, glucose is 106, calcium 9.3. Total bili 0.9, AST 54, ALT 31, alkaline phosphatase 77. LDH is 2747 and proBNP is 145. Total protein 8.2, albumin is 4.8. Venous potassium is 2.8. Repeat blood labs as of 04/25/2018: Sodium 133, potassium 3.2, chloride 97, CO2 of 28, BUN 19, creatinine 1.6, glucose 137. As of 04/26/2018: Serum uric acid level is 12.4. Calcium 9.1, phosphorus is 3.3. WBC 132,002; hemoglobin 12.3; hematocrit is 38.3; platelets 161. Neutrophils 12, bands 3, lymphs 36, reactive lymphs 26, monocytes 3, and blast cells 19%. Other reports: Chest x-ray as of 04/25/2018: No active disease. CT of the chest as of 04/25/2018, impression: No evidence of pulmonary embolism, no pulmonary infiltrate or pleural effusion. Multiple rounded low-attenuation nonspecific lesions within the liver. Consider correlation with ultrasound examination, multiple rounded low-attenuation nonspecific lesions. CT of the abdomen: Multiple lesions are scattered throughout the liver with two largest to suggest of cyst. Ultrasonography can prove. There is a simple nature cholelithiasis. Gallbladder and bile duct large calculus is identified within contracted gallbladder. Trace excreted iodinated contrast material seen within the renal parenchyma bilaterally with the kidneys otherwise unremarkable appearing. Ultrasound of the abdomen as of 04/25/2018, impression: Liver is 13.1 cm, lengthy echogenic liver mass seen in the setting of hepatic parenchymal disease or fatty infiltration. Multiple avascular anechoic hepatic masses consistent with cyst, largest cyst measures approximately 2.7 x 1.6 x 2.2 cm. The main portal vein appears patent with normal directional flow. No intrahepatic biliary duct dilatation. Gallbladder: Cholelithiasis, gallbladder wall thickening measuring approximately 5 mm. Negative sonographic Robin's sign. Impression: Multiple hepatic cysts, largest cyst measures approximately 2.7 x 1.6 x 2.2 cm echogenic liver may be seen in the setting of hepatic parenchymal disease or fatty infiltration, cholelithiasis. ASSESSMENT AND PLAN: In summary, Mr. Guillen is a 63-year-old elderly [place] male with a history of longstanding hypertension who was admitted with dyspnea on exertion, shortness of breath, feeling weak and tired, exhausted for the last few months. Now, the patient was admitted with increased creatinine and abnormal laboratories. The patient was found to have elevated white blood cell count more than 100,000 and also elevated lactic acid dehydrogenase level and increased blast cells of 19% to 25% with increased lymphocytes and bilateral leg swelling and positive for deep venous thrombosis. Official report is pending with increased blood urea nitrogen and creatinine after the contrast. 1. Nonoliguric acute renal failure, most likely secondary to contrast-induced nephropathy, cannot rule out tumor lysis syndrome. 2. Hypertension. 3. Increased white blood cell count, rule out the acute lymphocytic leukemia. Follow up with the package line operator and rule out acute myeloid leukemia. The patient is being transferred to [facility] this evening. Continue intravenous hydration. Continue allopurinol also. Thank you for allowing me to participate in your patient's care. Gabe Castillo MD
--- NOTE | 2018-04-29 11:33 | VASCLAB ---
Date of service: 04/25/2018 PROCEDURE: Lower Extremity Venous Duplex Exam. HISTORY: SWELL R/O DVT PRIORS: None. TECHNIQUE: Bilateral common femoral, femoral, popliteal and posterior tibial, peroneal and great saphenous veins were evaluated. Flow was assessed with color Doppler, compressibility, assessment of phasic flow and augmentation response. Report prepared by Les England, BS, RVT FINDINGS: RIGHT: 1. Common Femoral Vein: 1.1. Compressibility - Fully compressible: Thrombus - None : Flow - Phasic: Augmentation -Normal: Reflux - None. 2. Femoral Vein: 2.1. Compressibility - Fully compressible: Thrombus - None : Flow - Phasic: Augmentation -Normal: Reflux - None. 3. Popliteal Vein: 3.1. Compressibility - Fully compressible: Thrombus - None : Flow - Phasic: Augmentation -Normal: Reflux - None. 4. Posterior Tibial Vein: 4.1. Compressibility - Fully compressible: Thrombus - None: Flow - Phasic: Augmentation -Normal: Reflux - None. 5. Peroneal Vein: 5.1. Compressibility - Fully compressible: Thrombus - None: Flow - Phasic: Augmentation -Normal: Reflux - None. 6. Great Saphenous Vein: 6.1. Compressibility - Fully compressible: Thrombus - None: Flow - Phasic: Augmentation - Normal: Reflux - None. LEFT: 1. Common Femoral Vein: 1.1. Compressibility - Fully compressible: Thrombus - None: Flow - Phasic: Augmentation -Normal: Reflux - None. 2. Femoral Vein: 2.1. Compressibility - Fully compressible: Thrombus - None: Flow - Phasic: Augmentation -Normal: Reflux - None. 3. Popliteal Vein: 3.1. Compressibility - Fully compressible: Thrombus - None : Flow - Phasic: Augmentation -Normal: Reflux - None. 4. Posterior Tibial Vein: 4.1. Compressibility - Fully compressible: Thrombus - None: Flow - Phasic: Augmentation -Normal: Reflux - None. 5. Peroneal Vein: 5.1. Compressibility - Partial: Thrombus - Acute: Flow - Absent : Augmentation - None: Reflux - None. 6. Great Saphenous Vein: 6.1. Compressibility - Fully compressible: Thrombus - None: Flow - Phasic: Augmentation - Normal: Reflux - None. OTHER FINDINGS: Dr. Astorga notified about the findings. IMPRESSION: Right: Acute thrombosis of the right gastrocnemius and shorter saphenous veins with severe reduction of the venous return. Left: Acute thrombosis of the left peroneal vein with severe reduction of the venous return.
== END 2018-04-26 21:25 | disposition short-term general hospital (02) | DRG 300 ==
LOC: C.ER 14:28 → C.9E 17:05 → C.3T 18:19
PROVIDERS: ADMIT Internal Medicine; ATTEND Internal Medicine
DX: I82.403 Acute embolism and thrombosis of unspecified deep veins of lower extremity, bilateral (principal); C95.00 Acute leukemia of unspecified cell type not having achieved remission; N17.9 Acute kidney failure, unspecified; I12.9 Hypertensive chronic kidney disease with stage 1 through stage 4 chronic kidney disease, or unspecified chronic kidney disease; N18.9 Chronic kidney disease, unspecified; K76.0 Fatty (change of) liver, not elsewhere classified; N14.1 Nephropathy induced by other drugs, medicaments and biological substances; T50.8X5A Adverse effect of diagnostic agents, initial encounter; R53.1 Weakness